=== PATIENT | male | born 1975 ===

== ENCOUNTER 2017-12-16 12:48 | Emergency (ER) | payer OTHER ==
[~2017-12-16] VITALS: Ht 172.7 cm; Wt 81.8 kg
[2017-12-16 12:51] VITALS: BP 148/101
[2017-12-16] MEDS ORDERED: SULF1TAB49 PO (13:20)
[2017-12-16] MEDS ORDERED: CEPH-572 PO (13:20)
== END 2017-12-16 13:35 | disposition home or self-care (01) ==
LOC: ER 12:49
DX: L03.116 Cellulitis of left lower limb (principal); Z79.899 Other long term (current) drug therapy
CPT/HCPCS: 99283; A6449